=== PATIENT | female | born 1965 | race Caucasian/White ===

== ENCOUNTER → 2021-03-12 | Outpatient (CLI) | payer MEDICARE, OTHER ==
[2021-03-14 17:11] LABS: STRIATIONAL ANTIBODIES Negative (Neg:<1:40)
[2021-03-19 11:14] LABS: ACHR MODULATING ANTIBODIES <12 % (0-20)
== END ==
LOC: LAB 13:46
PROVIDERS: Psychiatry & Neurology Clinical Neurophysiology
DX: G70.00 Myasthenia gravis without (acute) exacerbation (principal); M79.7 Fibromyalgia
CPT/HCPCS: 36415; 83519; 84443; 86255